=== PATIENT | male | born 1950 | race Caucasian/White ===

== ENCOUNTER 2019-08-22 14:38 | Emergency (ER) | payer MEDICARE, SELFPAY ==
--- NOTE | 2019-08-22 14:44 | ECG_ITS ---
Measurements Intervals [place] Rate: 83 P: 31 [place]: 136 QRS: -16 QRSD: 100 T: 32 QT: 358 QTc: 423 Interpretive Statements SINUS RHYTHM VOLTAGE CRITERIA FOR LVH BORDERLINE ECG Electronically Signed On 08-23-2019 8:43:09 CLINICAL CARE MANAGER by John Maciel D.O.
--- NOTE | 2019-08-22 14:51 | ED.CHESTPAIN ---
HPI - Chest Pain General Chief Complaint: Chest Pain Stated Complaint: CP Time Seen by Provider: 08/22/19 14:44 Source: patient Mode of arrival: ambulatory Limitations: no limitations and language barrier History of Present Illness HPI narrative: A 69 y/o male presents to the ED with c/o CP. Pt states that yesterday he was nauseous and took Pepto-Bismol for the nausea. He notes that he took 3-4 doses of Pepto-Bismol with no relief and then started to vomit. Pt adds that he vomited 4 times and started to have chest pain yesterday night. He reports that the CP has been constant since and is severe in nature. Pt does not note any aggravating or alleviating factors for the CP. He reports a bad taste in his mouth, but denies any current nausea or vomiting in the ED. A complete HPI is limited due to the patient being deaf. A stratus was used to translate. MD complaint: chest pain Onset (ago): day(s) (1) Timing of current episode: constant Severity: severe Relieving factors: nothing Exacerbating factors: nothing Associated symptoms: nausea (Resolved), vomiting (Resolved) and other (Bad taste in mouth) Related Data Allergies Allergy/AdvReac Type Severity Reaction Status Date / Time No Known Allergies Allergy Unverified 08/14/18 11:54 Review of Systems Review of Systems: All systems reviewed & are unremarkable except as noted in HPI and below ENT: Reports other (Bad taste in mouth) Cardiovascular: Cardiovascular: Reports chest pain Gastrointestinal: Gastrointestinal: Reports nausea (Resolved) and Reports vomiting (Resolved) [facility] Past Medical History Medical History (Updated 08/22/19 @ 18:05 by Pranav Stroud MD) Arthritis Deaf HTN (hypertension) Meningitis Psoriasis Surgical History Surgical History (Updated 08/22/19 @ 15:51 by Mercy Myles) History of hip surgery Right History of tonsillectomy Family History Family History Other Diabetes mellitus Family history of alcoholism Family history of arthritis Family history of lung disease Hypertension Social History Social History (Updated 08/22/19 @ 14:56 by Mercy Myles) Smoking packs per day: 1 Smoking cigarettes per day: 20.0 Years smoked: 30 Smoking pack-years: 30.00 Smoking status: Never smoker Smoking end date: 06/18/12 Alcohol intake: never Gender identity (if verbalized by the patient): Male Exam Const: General: healthy appearing, no acute distress and well developed Nutritional Appearance: well nourished Orientation/consciousness: patient oriented x3 (alert) and Other orientation findings (Alert) Limitations: no limitations HENMT: Head: normocephalic, atraumatic and other (Deaf) Ears: external ears normal General nose exam: No nasal discharge present and no epistaxis Face and sinus: face symmetric Mouth: Yes lip normal, Yes tongue normal and Yes moist mucous membranes Throat: other (No exudate, no erythema) Eyes: Conjunctivae: conjunctivae normal Sclera: sclerae normal EOM: EOMs intact bilaterally Neck: Neck: full ROM, no lymphadenopathy, supple and other (No neck pain) Thyroid: thyroid normal Chest: Chest palpation & inspection: no tenderness Resp: Effort & Inspection: normal respiratory effort Auscultation: clear to auscultation bilaterally, no rales, no rhonchi, no wheezes and other (breath sounds equal) Cardio: Rate: regular rate Rhythm: regular rhythm Heart sounds: no gallops and no murmurs GI: Inspection: non-distended GI Palp: No abdominal tenderness and Yes Soft to palpation Auscultation: other (bowel sounds present) : General: Yes no CVA tenderness Back/Spine/Pelvis: Back: no CVA tenderness Thoracic/Lumbar Spine: thoracic and lumbar spine normal to inspection Skin: General skin exam: normal color and no rashes or lesions noted Neuro: General: patient oriented x3 (alert), moves all extremities and no focal motor deficits Cranial nerves:
[2019-08-22 14:55] VITALS: BP 147/99; PULSE 82; PULSE 88; RESP 16; TEMP 37; O2SAT 100
[2019-08-22 14:55] LABS: Basophils Percent Auto 0.1 % (0.2-1.2); Eosinophils Percent Auto 0.1 % (0-4.4); Hematocrit 44.4 % (42.0-52.0); Immature Granulocyte Absolute 0.04 K/mm3 (0.00-0.031); Immature Granulocyte Percent A 0.5 % (0-0.5); Lymphocytes Absolute Auto 0.74 K/mm3 (0.9-3.2); Lymphocytes Percent Auto 8.9 % (18.3-44.2); Mean Corpuscular HGB Conc 33.8 g/dl (32-36); Mean Corpuscular Hemoglobin 29.6 pg (26-34); Mean Corpuscular Volume 87.6 fl (80-100); Mean Platelet Volume 8.6 fl (7.4-10.4); Monocytes Absolute Auto 0.5 K/mm3 (0.1-0.6); Monocytes Percent Auto 6.3 % (2.6-8.5); Neutrophils Percent Auto 84.1 % (45.5-73.1); Platelet Count Result 270 k/mm3 (150-375); Red Blood Count 5.07 M/mm3 (4.6-6.20); Red Cell Distribution Width 13.7 % (11.5-14.5); White Blood Count 8.3 K/mm3 (4.5-10.0)
[2019-08-22 15:10] LABS: Blood Urea Nitrogen 7 mg/dL (9-20); Calcium 9.2 mg/dL (8.4-10.2); Carbon Dioxide 26 mmol/L (22-30); Chloride 99 mmol/L (98-107); Estimated Glomerular Filt Rate > 60; Glucose 113 mg/dL (75-110); Sodium 134 mmol/L (137-145)
[2019-08-22 15:16] LABS: Prothrombin Time 13.2 Seconds (11.1-14.7)
[2019-08-22 15:17] LABS: Partial Thromboplastin Time 30.8 SECONDS (22.3-36.8)
[2019-08-22 15:18] LABS: Troponin I < 0.012 ng/mL (0.000-0.034)
[2019-08-22] MEDS: ASPIRIN 81 MG CHEWABLE TABLET 324 MG PO (15:34)
[2019-08-22 16:03] VITALS: BP 173/88; PULSE 78; RESP 18; O2SAT 100
[2019-08-22] MEDS: BELLADONNA ALK/PHENOB ELIX 10 ML, MAG HYDROX/ALUMINUM HYD/SIMETH 30 ML, LIDOCAINE HCL 2... PO (16:08)
--- NOTE | 2019-08-22 16:16 | PC.NURSE ---
SUPERVISOR PAINTING DEPARTMENT AT BEDSIDE TO SPEAK WITH PT ABOUT SETTING HIM UP WITH A HOME ALERT BUTTON.
[2019-08-22 16:37] VITALS: BP 173/88; PULSE 85; RESP 16; O2SAT 98
--- NOTE | 2019-08-22 17:17 | PC.NURSE ---
PT STATES HE IS FEELING MUCH BETTER.
[2019-08-22 17:19] VITALS: BP 145/89; PULSE 75; RESP 16; O2SAT 98
--- NOTE | 2019-08-22 17:35 | PC.NURSE ---
PT REPORT GIVEN TO SIMONE HALL AT THIS TIME, SHE HAS ASSUMED PT CARE.
[2019-08-22 18:01] LABS: Troponin I < 0.012 ng/mL (0.000-0.034)
[2019-08-22 18:28] VITALS: BP 152/80; PULSE 76; RESP 14; O2SAT 98
== END 2019-08-22 18:30 | disposition home or self-care (01) ==
PROVIDERS: Emergency Medicine; Emergency Provider Emergency Medicine; PCP Internal Medicine
DX: K21.9 Gastro-esophageal reflux disease without esophagitis (principal); M19.90 Unspecified osteoarthritis, unspecified site; I10 Essential (primary) hypertension; H91.90 Unspecified hearing loss, unspecified ear; Z87.891 Personal history of nicotine dependence; R94.31 Abnormal electrocardiogram [ECG] [EKG]
CPT/HCPCS: 36415; 80048; 84484; 85025; 85610; 85730; 93005; 99284; A9270

== ENCOUNTER 2020-08-03 14:30 | Emergency (ER) | payer MEDICARE, SELFPAY ==
--- NOTE | ~2020-08-03 | XR_ITS ---
EXAMINATION: XR elbow RT min 3V DATE: 08/03/2020 16:21 INDICATION: Right elbow pain post fall TECHNIQUE: Anteroposterior, two oblique and lateral views of the right elbow were obtained. COMPARISON: None. FINDINGS: Alignment is normal. No fracture or joint effusion. Mild osteoarthritis at the right elbow with ulnot rochlear predominant mild nonuniform joint space narrowing and tiny marginal osteophytes. Soft tissu es are unremarkable. IMPRESSION: 1. Mild osteoarthritis at the right elbow. No joint effusion or acute osseous abnormality. Reviewed, dictated and finalized at location A. ER TECH IMPRESSION: 1. Mild osteoarthritis at the right elbow. No joint effusion or acute osseous a bnormality.
--- NOTE | ~2020-08-03 | XR_ITS ---
EXAMINATION: XR wrist RT min 3V DATE: 08/03/2020 16:21 INDICATION: Right wrist pain post fall TECHNIQUE: Posteroanterior, oblique, and lateral views of the right wrist were obtained. COMPARISON: none FINDINGS: Transverse extra-articular fracture of the distal right radius with mild dorsal impaction resulting i n 10 degrees dorsal tilt of the distal articular surface. 1-2 mm distraction of an avulsion fracture across the base of the ulnar styloid process. Normal alignment in the visualized right hand with mild polyarticular osteoarthritis at the right wrist, right first metacarpophalangeal joint and multiple joints in the carpus. IMPRESSION: 1. Mild dorsal impaction of a transverse extra articular fracture of the distal metaphyseal region of the right radius. 2. Ulnar styloid avulsion fracture with minimal distraction. Reviewed, dictated and finalized at location A. RNATIONAL EXCHANGE COORDINATOR
--- NOTE | ~2020-08-03 | XR_ITS ---
EXAMINATION: XR chest 1V portable EXAM DATE: 08/03/2020 16:21 INDICATION: Weakness, history of hypertension. TECHNIQUE: Portable AP frontal chest x-ray was obtained. Comparison is made to prior examination from 06/11/2015. FINDINGS: Bibasilar somewhat linear airspace disease, appearance most consistent with atelectasis but can't exclude developing pneumonia. Mid and upper lung zones are clear. No pneumothorax or pleural e ffusion. Cardiomediastinal silhouette is normal. The bones are osteopenic. There are bony degenerati ve changes. IMPRESSION: Bibasilar opacities most consistent with atelectasis. Pneumonia not excludable. Reviewed, dictated and finalized at location A. ULATOR IMPRESSION: Bibasilar opacities most consistent with atelectasis. Pneumonia no t excludable.
--- NOTE | 2020-08-03 14:53 | ECG_ITS ---
Measurements Intervals [place] Rate: 73 P: 41 [place]: 164 QRS: -8 QRSD: 100 T: 25 QT: 395 QTc: 438 Interpretive Statements SINUS RHYTHM VOLTAGE CRITERIA FOR LVH BORDERLINE ECG Electronically Signed On 08-04-2020 9:26:01 NEWSROOM INTERN by John Maciel D.O.
[2020-08-03 15:00] LABS: Glucose Point of Care 140 (65-105)
--- NOTE | 2020-08-03 15:04 | PC.NURSE ---
Pt denies hitting head when falling. States through the carton stapler no other complaints but right arm pain
[2020-08-03 15:16] LABS: Basophils Percent Auto 0.3 % (0.2-1.2); Eosinophils Percent Auto 0.6 % (0-4.4); Hematocrit 44.1 % (42.0-52.0); Hemoglobin 14.9 g/dL (14.0-18.0); Immature Granulocyte Absolute 0.07 K/mm3 (0.00-0.031); Immature Granulocyte Percent A 1.1 % (0-0.5); Lymphocytes Absolute Auto 0.85 K/mm3 (0.9-3.2); Mean Corpuscular HGB Conc 33.8 g/dl (32-36); Mean Corpuscular Hemoglobin 30.6 pg (26-34); Mean Corpuscular Volume 90.6 fl (80-100); Mean Platelet Volume 8.4 fl (7.4-10.4); Monocytes Absolute Auto 0.4 K/mm3 (0.1-0.6); Monocytes Percent Auto 5.8 % (2.6-8.5); Neutrophils Absolute Auto 5.2 K/mm3 (1.3-6.7); Neutrophils Percent Auto 79.2 % (45.5-73.1); Platelet Count Result 281 k/mm3 (150-375); Red Blood Count 4.87 M/mm3 (4.6-6.20); Red Cell Distribution Width 13.5 % (11.5-14.5); White Blood Count 6.6 K/mm3 (4.5-10.0)
[2020-08-03 15:27] LABS: Alanine Aminotransferase 32 U/L (4-50); Alkaline Phosphatase 49 U/L (38-126); Anion Gap 6 mmol/L (8-16); Aspartate Amino Transferase 26 U/L (17-59); Bilirubin,Total 0.6 mg/dL (0.2-1.3); Blood Urea Nitrogen 9 mg/dL (9-20); Calcium 8.7 mg/dL (8.4-10.2); Carbon Dioxide 29 mmol/L (22-30); Chloride 101 mmol/L (98-107); Estimated Glomerular Filt Rate > 60; Glucose 146 mg/dL (75-110); Potassium 3.8 mmol/L (3.4-5.0); Sodium 136 mmol/L (137-145)
[2020-08-03 16:33] VITALS: BP 142/78; O2SAT 97
--- NOTE | 2020-08-03 16:51 | PC.NURSE ---
EKG done in room. patient placed on cardiac rn. needs right wrist splint. patient wants to eat.
--- NOTE | 2020-08-03 17:05 | ED.FALL ---
HPI - Fall General Chief Complaint: Weakness Stated Complaint: weakenss and dizziness Time Seen by Provider: 08/03/20 16:42 Source: patient Limitations: other (Patient is deaf, we wrote notes) History of Present Illness HPI Narrative: 70-year-old man Slipped on ice and fell this morning Injury to right arm and wrist Pain with attempted use, no numbness, no weakness He did not faint, he did not strike his head, and he reports no other injuries He does endorse some mild generalized fatigue or weakness Related Data Allergies Allergy/AdvReac Type Severity Reaction Status Date / Time No Known Allergies Allergy Unverified 08/14/18 11:54 Review of Systems Constitutional: Constitutional: Reports fatigue Cardiovascular: Cardiovascular: Denies chest pain Gastrointestinal: Gastrointestinal: Denies abdominal pain Musculoskeletal: Musculoskeletal: Denies back pain, Reports arthralgias and Reports joint swelling Neurologic: Denies syncope [facility], [facility] Past Medical History Medical History (Updated 08/04/20 @ 00:00 by Fransisco Siddiqui) Arthritis Deaf HTN (hypertension) Meningitis Psoriasis Surgical History Surgical History (Updated 08/22/19 @ 15:51 by Mercy Myles) History of hip surgery Right History of tonsillectomy Family History Family History Other Diabetes mellitus Family history of alcoholism Family history of arthritis Family history of lung disease Hypertension Social History Social History (Updated 08/22/19 @ 14:56 by Mercy Myles) Smoking packs per day: 1 Smoking cigarettes per day: 20.0 Years smoked: 30 Smoking pack-years: 30.00 Smoking status: Never smoker Smoking end date: 06/18/12 Alcohol intake: never Gender identity (if verbalized by the patient): Male Exam Const: General: no acute distress and alert Nutritional Appearance: well nourished Limitations: language barrier HENMT: Head: normal to inspection, no contusions, no hematomas and no lacerations Other: Patient is deaf Eyes: Conjunctivae: conjunctivae normal EOM: EOMs intact bilaterally Chest: Chest palpation & inspection: normal inspection of the chest Resp: Effort & Inspection: normal respiratory effort and not labored Auscultation: clear to auscultation bilaterally Cardio: Rate: regular rate Rhythm: regular rhythm Skin: Wounds: no wounds Neuro: General: moves all extremities Extrem: Other: Mild swelling and tenderness right distal forearm/wrist, intact distal neurovascular, able to move all his fingers Course Vital Signs Vital signs: Vital Signs Blood Pressure 142/78 H 08/03/20 16:33 Pulse Oximetry 97 08/03/20 16:33 Blood Pressure 142/78 H 08/03/20 16:33 Pulse Oximetry 97 08/03/20 16:33 MDM - Fall Lab Data Result diagrams: 08/03/20 15:08 08/03/20 15:08 Labs: Lab Results 08/03/20 08/03/20 08/03/20 Range/Units 14:58 15:08 15:08 WBC 6.6 (4.5-10.0) K/mm3 RBC 4.87 (4.6-6.20) M/mm3 Hgb 14.9 (14.0-18.0) g/dL Hct 44.1 (42.0-52.0) % MCV 90.6 (80-100) fl MCH 30.6 (26-34) pg MCHC 33.8 (32-36) g/dl RDW 13.5 (11.5-14.5) % Plt Count 281 (150-375) k/mm3 MPV 8.4 (7.4-10.4) fl Immature Gran % (Auto) 1.1 H (0-0.5) % Neut % (Auto) 79.2 H (45.5-73.1) % Lymph % (Auto) 13.0 L (18.3-44.2) % [place] % (Auto) 5.8 (2.6-8.5) % Eos % (Auto) 0.6 (0-4.4) % Baso % (Auto) 0.3 (0.2-1.2) % Lymph # (Auto) 0.85 L (0.9-3.2) K/mm3 [place] # (Auto) 0.4 (0.1-0.6) K/mm3 Eos # (Auto) 0.0 (0-0.3) K/mm3 Baso # (Auto) 0.0 (0.0-0.1) K/mm3 Abs Immat Gran (auto) 0.07 H (0.00-0.031) K/mm3 Absolute Neuts (auto) 5.2 (1.3-6.7) K/mm3 Absolute Nucleated RBC 0.0 (0.0-0.012) K/mm3 Nucleated RBC % 0.0 (0.0-0.2) % Sodium 136 L (137-145) mmol/L Potassium 3.8 (3.4-5.0) mmol/L Chloride 101 (98-1
--- NOTE | 2020-08-03 17:35 | PC.NURSE ---
resting on stretcher. on monitor. patient wants coffee and toast. advised we do not have any ready at this moment. ice water and keny crackers with peanut butter given. will get splint on right wrist.
[2020-08-03] MEDS: HYDROcodone/acetaminophen (*CRX) 5-325 MG TABLET 1 TAB PO (18:02)
--- NOTE | 2020-08-03 18:02 | PC.NURSE ---
pain medication given. clarified ordered with Dr. Stroud. patient needs right wrist volar splint prior to discharge. patient updated.
--- NOTE | 2020-08-03 18:15 | PC.NURSE ---
tire service technician at bedside. Volar splint to right wrist as ordered and clarified by provider. (+)PMS after splint applied. all directions and explanation of procedure were written out for patient. verbalized understanding.
== END 2020-08-03 18:37 | disposition home or self-care (01) ==
PROVIDERS: Emergency Medicine; Emergency Provider Emergency Medicine; PCP Family Medicine
DX: S52.551A Other extraarticular fracture of lower end of right radius, initial encounter for closed fracture (principal); S52.611A Displaced fracture of right ulna styloid process, initial encounter for closed fracture; I10 Essential (primary) hypertension; L40.9 Psoriasis, unspecified; H91.90 Unspecified hearing loss, unspecified ear; Z87.891 Personal history of nicotine dependence; M19.021 Primary osteoarthritis, right elbow; R91.8 Other nonspecific abnormal finding of lung field; W00.0XXA Fall on same level due to ice and snow, initial encounter
CPT/HCPCS: 29125; 36415; 71045; 73080; 73110; 80053; 82948; 85025; 93005; 99284; A9270

== ENCOUNTER 2020-11-10 17:49 | Emergency (ER) | payer MEDICARE, MEDICAID, SELFPAY ==
--- NOTE | ~2020-11-10 | XR_ITS ---
XR finger 3rd LT min 2V 11/10/2020 19:09 INDICATION: Left third finger pain PROCEDURE: 3 views left third finger COMPARISON: No prior studies for comparison. FINDINGS: Fracture, dislocation or subluxation is not identified. Osteopenia. The soft tissues appear within normal limits. No foreign bodies are identified. There is a healed second metacarpal fractur e. IMPRESSION: 1: NO ACUTE BONE OR JOINT ABNORMALITY IDENTIFIED. Reviewed, dictated and finalized at location A.
[2020-11-10 18:00] VITALS: BP 149/88; PULSE 78; RESP 18; TEMP 36.4; O2SAT 98
--- NOTE | 2020-11-10 18:54 | ED.UPPEXIN ---
HPI - Extremity Injury (Upper) General Chief Complaint: Extremity Injury, Upper Stated Complaint: finger pain Time Seen by Provider: 11/10/20 18:22 Source: patient Mode of arrival: ambulatory Limitations: language barrier (Used video fire adjuster for sign language) History of Present Illness HPI narrative: This is a 70-year-old male that presents the emergency department for possible foreign body in the left third finger. He was moving boxes yesterday and feels like he may have gotten a splinter. Reports pain to the area. Denies fever, erythema, or edema. Related Data Allergies Allergy/AdvReac Type Severity Reaction Status Date / Time No Known Allergies Allergy Verified 11/10/20 18:19 Review of Systems Review of Systems: Narrative: CONSTITUTIONAL: Denies fever SKIN: Denies rash All systems reviewed & are unremarkable except as noted in HPI and below PMFSH Past Medical History Medical History Arthritis Deaf HTN (hypertension) Meningitis Psoriasis Surgical History Surgical History History of hip surgery Right History of tonsillectomy Family History Family History Other Diabetes mellitus Family history of alcoholism Family history of arthritis Family history of lung disease Hypertension Social History Social History Smoking packs per day: 1 Smoking cigarettes per day: 20.0 Years smoked: 30 Smoking pack-years: 30.00 Smoking status: Never smoker Smoking end date: 06/18/12 Alcohol intake: never Gender identity (if verbalized by the patient): Male Exam Narrative: Exam Narrative: GENERAL: Well-appearing, well-nourished, and in no acute distress. HEAD: Normocephalic, atraumatic. EYES: EOMI. EXTREMITIES: Normal range of motion. No edema, erythema or obvious foreign body on exam. SKIN: Warm, dry, no rash. NEURO: No focal deficits. Alert and oriented x3. PSYCH: Normal mood and affect Course Vital Signs Vital signs: Vital Signs Temperature 97.5 F L 11/10/20 18:00 Pulse Rate 78 11/10/20 18:00 Respiratory Rate 18 11/10/20 18:00 Blood Pressure 149/88 H 11/10/20 18:00 Pulse Oximetry 98 11/10/20 18:00 Temperature 97.5 F L 11/10/20 18:00 Pulse Rate 78 11/10/20 18:00 Respiratory Rate 18 11/10/20 18:00 Blood Pressure 149/88 H 11/10/20 18:00 Pulse Oximetry 98 11/10/20 18:00 MDM - Extremity Injury (Upper) MDM Narrative Medical decision making narrative: Patient presents the emergency department for left third finger pain yesterday. Reports he was worried he may have a splinter. He is afebrile and nontoxic-appearing. No erythema, edema or warmth of the finger. No obvious foreign bodies on exam. Left third finger x-rays without acute osseous abnormalities. Patient instructed to do warm, soapy soaks to the finger multiple times daily. There is no abscess noted on exam. He is stable and felt appropriate for further outpatient evaluation. He was given warnings to return to the ER Imaging Data Radiologist's impression: ITS Impressions Finger X-Ray 11/10/20 19:11 IMPRESSION: 1: NO ACUTE BONE OR JOINT ABNORMALITY IDENTIFIED. Critical Care Time Critical Care Time Critical Care Time: No Discharge Plan Discharge Clinical Impression: Finger pain Qualifiers: Laterality: left Qualified Code(s): M79.645 - Pain in left finger(s) Patient Disposition: Home, Self-Care Condition: Stable Instructions: [place] (ED) Additional Instructions: Return to the emergency department if you experience fever, redness and swelling of your finger, abnormal drainage from the finger, or any other symptoms that are concerning to you Warm, soapy soaks for 15 minutes 3 times daily Follow up with your primary care doctor Selena
[2020-11-10 20:10] VITALS: BP 142/86; PULSE 80; RESP 20; TEMP 36.4; O2SAT 97
== END 2020-11-10 20:11 | disposition home or self-care (01) ==
PROVIDERS: Emergency Provider Emergency Medicine; PCP Family Medicine
DX: M79.645 Pain in left finger(s) (principal); M19.90 Unspecified osteoarthritis, unspecified site; I10 Essential (primary) hypertension; H91.90 Unspecified hearing loss, unspecified ear
CPT/HCPCS: 73140; 99283

== ENCOUNTER 2020-12-15 09:11 | Emergency (ER) | payer MEDICARE, MEDICAID, SELFPAY ==
[2020-12-15] VITALS (9 sets, daily range): BP systolic 161–194; BP diastolic 87–102; PULSE 63–89; RESP 14–33; TEMP 36.3; O2SAT 95–99
--- NOTE | ~2020-12-15 | XR_ITS ---
EXAMINATION: XR chest 1V portable INDICATION: Dizziness TECHNIQUE: Portable AP chest at 1231 hours COMPARISON: 08/03/2020 FINDINGS: There are patchy opacities of the lung bases. No pleural effusion or pneumothorax is identi fied. The cardiomediastinal silhouette is stable. IMPRESSION: 1. Patchy bibasilar airspace opacities, likely atelectasis. Reviewed, dictated and finalized at location B.
--- NOTE | ~2020-12-15 | CT_ITS ---
EXAMINATION: CT brain wo con DATE: 12/15/2020 12:47 INDICATION: Dizziness. Headache. TECHNIQUE: Computed tomography (CT) of the head was performed without intravenous contrast. The mA wa s adjusted according to patient size. Iterative reconstruction technique was employed. The dose-lengt h product was 605.33 mGy-cm. COMPARISON: None FINDINGS: There is no intracranial hemorrhage, acute infarction, or abnormal intracranial mass lesion . There is an old lacunar infarct in the left lentiform nucleus. There are scattered areas of low att enuation in the cerebral white matter. There is no intracranial hemorrhage, acute infarction, or abno rmal intracranial mass lesion. The ventricles are normal in size. IMPRESSION: 1. 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 2. Mild nonspecific cerebral white matter disease, which likely represents chronic small vessel ische marvin disease. Reviewed, dictated and finalized at location A. IMPRESSION: 1. 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 2. Mild nonspecific cerebral white matter disease, which likely represents manager news colton small vessel ischemic disease.
--- NOTE | 2020-12-15 09:41 | ECG_ITS ---
Measurements Intervals [place] Rate: 77 P: 27 [place]: 156 QRS: -26 QRSD: 105 T: 18 QT: 371 QTc: 422 Interpretive Statements SINUS RHYTHM POSSIBLE LEFT ATRIAL ENLARGEMENT INCOMPLETE RIGHT BUNDLE BRANCH BLOCK LEFT VENTRICULAR HYPERTROPHY BORDERLINE ECG Electronically Signed On 12-15-2020 10:08:06 CDT by John Maciel D.O.
[2020-12-15 10:19] LABS: Basophils Percent Auto 0.5 % (0.2-1.2); Eosinophils Percent Auto 0.6 % (0-4.4); Hematocrit 46.4 % (42.0-52.0); Hemoglobin 15.5 g/dL (14.0-18.0); Immature Granulocyte Absolute 0.05 K/mm3 (0.00-0.031); Immature Granulocyte Percent A 0.8 % (0-0.5); Lymphocytes Absolute Auto 0.95 K/mm3 (0.9-3.2); Lymphocytes Percent Auto 15.3 % (18.3-44.2); Mean Corpuscular HGB Conc 33.4 g/dl (32-36); Mean Corpuscular Hemoglobin 29.7 pg (26-34); Mean Corpuscular Volume 88.9 fl (80-100); Mean Platelet Volume 8.6 fl (7.4-10.4); Monocytes Absolute Auto 0.6 K/mm3 (0.1-0.6); Monocytes Percent Auto 9.7 % (2.6-8.5); Neutrophils Absolute Auto 4.5 K/mm3 (1.3-6.7); Neutrophils Percent Auto 73.1 % (45.5-73.1); Platelet Count Result 304 k/mm3 (150-375); Red Blood Count 5.22 M/mm3 (4.6-6.20); Red Cell Distribution Width 13.2 % (11.5-14.5); White Blood Count 6.2 K/mm3 (4.5-10.0)
[2020-12-15 10:25] LABS: Anion Gap 10 mmol/L (8-16); Blood Urea Nitrogen 5 mg/dL (9-20); Calcium 9.3 mg/dL (8.4-10.2); Carbon Dioxide 25 mmol/L (22-30); Chloride 100 mmol/L (98-107); Estimated CRCL calculation 97 ml/min; Estimated Glomerular Filt Rate > 60; Glucose 118 mg/dL (75-110); Potassium 3.8 mmol/L (3.4-5.0); Sodium 135 mmol/L (137-145)
--- NOTE | 2020-12-15 12:13 | ED.HA ---
HPI - Headache General Chief Complaint: Headache Stated Complaint: dizziness, feel funny in my head , needs ASL Time Seen by Provider: 12/15/20 12:03 Source: RN notes reviewed History of Present Illness HPI Narrative: Patient presents emergency department from home for headache and dizziness. Patient states symptoms began 1 day ago. He states he has been having intermittent frontal headache with episodes of dizziness he states currently his headache is improved but is still present states he took no medication for his headache he also notes intermittent episodes of feeling like the room is spinning. He denies any fevers or chills, chest pain, shortness of breath, numbness or tingling in the extremities or any other symptoms. Patient is deaf and communication was performed by writing on paper pacing [id number] as the patient does not want to use rn practitioner Related Data Allergies Allergy/AdvReac Type Severity Reaction Status Date / Time No Known Allergies Allergy Verified 12/15/20 09:52 Review of Systems Review of Systems: Narrative: Gen.: Denies fevers or chills Eyes: Denies eye pain or visual change ENT: Denies congestion Respiratory: Denies shortness of breath or cough CV: Denies chest pain or palpitations GI: Denies abdominal pain nausea, emesis or diarrhea Musculoskeletal: Denies back pain or muscle pain Neuro: See HPI Skin: Denies rash Except as documented, all other systems reviewed and negative [facility] Past Medical History Medical History Arthritis Deaf HTN (hypertension) Meningitis Psoriasis Surgical History Surgical History History of hip surgery Right History of tonsillectomy Family History Family History Other Diabetes mellitus Family history of alcoholism Family history of arthritis Family history of lung disease Hypertension Social History Social History Smoking packs per day: 1 Smoking cigarettes per day: 20.0 Years smoked: 30 Smoking pack-years: 30.00 Smoking status: Never smoker Smoking end date: 06/18/12 Alcohol intake: never Gender identity (if verbalized by the patient): Male Exam Narrative: Exam Narrative: APPEARANCE: No acute distress, nontoxic, resting in bed HEENT: Normocephalic, atraumatic, OMM, EYES: PERRL, EOMI NECK: Supple, nontender, full range of motion without pain, no meningismus RESPIRATORY: No respiratory distress, clear to auscultation bilaterally with no rhonchi wheezing or rales CARDIOVASCULAR: RRR s murmur ABDOMINAL: Soft, nontender, nondistended MUSCULOSKELETAL: Moves all extremities. No clubbing, cyanosis or edema. NEURO: A and O ?3, following commands, speech normal, no facial droop,muscle strength 5 out of 5 bilateral upper and lower extremities SKIN:: Warm, dry. Normal Color PSYCHIATRIC: Normal affect/mood Course Course Emergency Course: Patient states he is feeling much better ready for discharge Discussed with patient results of workup and diagnosis. Discussed need for follow-up with primary care, proper use of medication, and reasons to return to the emergency department. Patient understands and agrees to current treatment plan Vital Signs Vital signs: Vital Signs Temperature 97.3 F L 12/15/20 09:35 Pulse Rate 89 12/15/20 09:35 Respiratory Rate 18 12/15/20 09:35 Blood Pressure 171/99 H 12/15/20 09:35 Pulse Oximetry 95 12/15/20 09:35 Temperature 97.3 F L 12/15/20 09:35 Pulse Rate 63 12/15/20 14:42 Respiratory Rate 18 12/15/20 14:42 Blood Pressure 161/102 H 12/15/20 14:42 Pulse Oximetry 95 12/15/20 09:35 MDM - Headache MDM Narrative Medical decision making narrative: Patient's headache was not sudden or maximal in onset. There are no focal deficits on exam. Subarachnoid hem
[2020-12-15 12:26] LABS: Add Urine Microscopic? NO; Appearance Urine Clear (Clear); Bilirubin Urine Negative (Negative); Blood Urine Negative (Negative); Color Urine Straw (Yellow); Glucose Urine UA Negative (Negative); Ketones Urine Negative (Negative); Leukocyte Esterase Ur Negative LEU/UL (Negative); Nitrate Urine Negative (Negative); Protein Urine Negative (Negative); Urobilinogen Urine Negative mg/dL (<2.0)
[2020-12-15] MEDS: SODIUM CHLORIDE 0.9% IV 1,000 ML 999 ML IV CONT (12:26)
[2020-12-15] MEDS: MECLIZINE HCL 12.5 MG TABLET PO (12:28)
[2020-12-15 12:29] LABS: Specific Grav Ur 1.003 (1.001-1.035)
== END 2020-12-15 16:00 | disposition home or self-care (01) ==
PROVIDERS: Emergency Medicine; Emergency Provider Emergency Medicine; PCP Family Medicine
DX: R51.9 Headache, unspecified (principal); R42 Dizziness and giddiness; I10 Essential (primary) hypertension; F17.210 Nicotine dependence, cigarettes, uncomplicated
CPT/HCPCS: 36415; 70450; 71045; 80048; 81003; 85025; 93005; 96361; 96374; 99284; A9270; J0131; J7030

== ENCOUNTER 2021-12-18 16:11 | Emergency (ER) | payer MEDICARE, SELFPAY ==
--- NOTE | ~2021-12-18 | XR_ITS ---
EXAM: XR lumbar spine 2-3V DATE: 12/18/2021 18:16 HISTORY: low back pain x 5 days . COMPARISON: None available. FINDINGS: 5 nonrib-bearing lumbar-type vertebral bodies. Pedicles intact. Mild anterior wedge deform ity with lucencies in the superior endplate at L3. Minimal anterior wedge deformity at multiple level s at the thoracolumbar junction, may be physiologic. Mild anterior wedge deformity of L4. Multilevel degenerative disc disease, severe at L4-5 and L5-S1. Multilevel minimal listheses throughout the lumb ar spine. Aortic vascular calcification without evident aneurysm. Right hip arthroplasty, partially v isualized. IMPRESSION: Acute appearing mild L3 wedge compression fracture. Acute versus chronic mild wedge compr ession deformity at L4. Reviewed, dictated and finalized at location K. IMPRESSION: Acute appearing mild L3 wedge compression fracture. Acute versus ch ronic mild wedge compression deformity at L4.
[2021-12-18 16:23] VITALS: BP 154/84; PULSE 94; RESP 16; TEMP 36.6; O2SAT 100
--- NOTE | 2021-12-18 17:30 | ED.BACK ---
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 No recent injury or trauma. Reports the pain is in his low back and is exacerbated by certain movements. It is relieved with rest. He has been taking [id number] medications with little relief. Denies fever or weakness. <JOSE Somers Last Filed: 12/18/21 19:21> Related Data Home Medications: Home Medications Medication Instructions Recorded Confirmed hydroxychloroquine 200 mg tablet 200 mg PO DAILY 01/31/21 02/02/21 lisinopril 5 mg tablet 5 mg PO DAILY 01/31/21 02/02/21 <JOSE Somers Last Filed: 12/18/21 19:21> Allergies/Adverse Reactions: Allergies Allergy/AdvReac Type Severity Reaction Status Date / Time No Known Allergies Allergy Verified 12/18/21 17:25 <JOSE Somers Last Filed: 12/18/21 19:21> Review of Systems Review of Systems: CONSTITUTIONAL: Denies fever GASTROINTESTINAL: Denies vomiting SKIN: Denies rash MUSCULOSKELETAL: Reports back pain, joint pain, and myalgia. NEUROLOGIC: Denies numbness, or weakness. <JOSE Somers Last Filed: 12/18/21 19:21> All systems reviewed & are unremarkable except as noted in HPI and below <Simi Stewart PA-C - Last Filed: 12/18/21 19:21> PMFSH Past Medical History Medical History: Medical History Arthritis Deaf History of closed Colles' fracture HTN (hypertension) Meningitis Psoriasis <Simi Stewart PA-C - Last Filed: 12/18/21 19:21> Surgical History Surgical History: Surgical History History of hip surgery Right History of tonsillectomy <Simi Stewart PA-C - Last Filed: 12/18/21 19:21> Family History Family History: Family History Other Diabetes mellitus Family history of alcoholism Family history of arthritis Family history of lung disease Hypertension <Simi Stewart PA-C - Last Filed: 12/18/21 19:21> Social History Social History: Social History (Updated 12/18/21 @ 17:33 by Simi tSewart PA-C) Smoking packs per day: 1 Smoking cigarettes per day: 20.0 Years smoked: 30 Smoking pack-years: 30.00 Smoking status: Former smoker Smoking end date: 06/18/12 Alcohol intake: never Gender identity (if verbalized by the patient): Male <Simi Stewart PA-C - Last Filed: 12/18/21 19:21> Exam Narrative: GENERAL: Well-appearing, well-nourished, and in no acute distress. HEAD: Normocephalic, atraumatic. EYES: EOMI. CHEST: Clear to auscultation. No respiratory distress. No wheezes rales or rhonchi HEART: Regular rate and rhythm. No murmur heard. Normal peripheral pulses. BACK: No midline spinal tenderness EXTREMITIES: Normal range of motion. No edema. Strength equal in bilateral lower extremities (5/5) SKIN: Warm, dry, no rash. NEURO: No focal deficits. Alert and oriented x3. PSYCH: Normal mood and affect <Simi Stewart PA-C - Last Filed: 12/18/21 19:21> Course DIVE SUPERINTENDENT/PA Physician Supervision I did not see this patient nor was the care plan discussed with me, imaging reviewed I was available for eval
== END 2021-12-18 19:37 | disposition home or self-care (01) ==
PROVIDERS: Emergency Provider Emergency Medicine; PCP Family Medicine
DX: S32.030A Wedge compression fracture of third lumbar vertebra, initial encounter for closed fracture (principal); M19.90 Unspecified osteoarthritis, unspecified site; I10 Essential (primary) hypertension; Z87.891 Personal history of nicotine dependence; X58.XXXA Exposure to other specified factors, initial encounter
CPT/HCPCS: 72100; 99283

== ENCOUNTER 2022-01-26 10:46 | Emergency (ER) | payer MEDICARE, SELFPAY ==
[2022-01-26 11:00] VITALS: BP 132/75; PULSE 101; RESP 18; TEMP 36.7; O2SAT 98
--- NOTE | 2022-01-26 11:12 | ED.EAR ---
HPI - Ear Problem General Chief complaint: Ear Stated complaint: Ear Pain Time Seen by Provider: 01/26/22 11:05 Source: patient Mode of arrival: ambulatory Limitations: no limitations History of Present Illness HPI Narrative: Mr. Go is a 71-year-old male patient presenting to the clinic today with complaints of bilateral ear pain the left greater than right x2 to 3 days.He is deaf and thinks that he may have cerumen impaction. He has been irrigating his ears out with warm water. He denies any fever or chills. Related Data Home Medications Medication Instructions Recorded Confirmed hydroxychloroquine 200 mg tablet 200 mg PO DAILY 01/31/21 01/26/22 lisinopril 5 mg tablet 5 mg PO DAILY 01/31/21 01/26/22 Allergies Allergy/AdvReac Type Severity Reaction Status Date / Time No Known Allergies Allergy Verified 01/26/22 11:01 Review of Systems Review of Systems: Pertinent positives per HPI. Patient denies any fever, chills, rash, headache, visual changes, dizziness, cough, runny nose, sore throat, shortness of breath, chest pain, palpitations, nausea, vomiting, diarrhea, constipation, abdominal pain, or any urinary issues. [facility] Past Medical History Medical History Arthritis Deaf History of closed Colles' fracture HTN (hypertension) Meningitis Psoriasis Surgical History Surgical History History of hip surgery Right History of tonsillectomy Family History Family History Other Diabetes mellitus Family history of alcoholism Family history of arthritis Family history of lung disease Hypertension Social History Social History Smoking packs per day: 1 Smoking cigarettes per day: 20.0 Years smoked: 30 Smoking pack-years: 30.00 Smoking status: Former smoker Smoking end date: 06/18/12 Alcohol intake: never Gender identity (if verbalized by the patient): Male Comments At the time of my signature, I reviewed and agree with the nursing past medical, surgical, social, and family history. There is no relevant family history pertinent to the patient complaint. Exam Narrative: General: Well-developed, well nourished, in no apparent distress Head: Normocephalic, atraumatic Eyes: Pupils equally round and reactive to light bilaterally, EOM intact, sclera and conjunctive clear, no discharge, lids normal Ears: TMs intact, bulging, and clear, ear canals clear, no drainage, grossly hearing normal. Nose: Nares patent, no discharge, no inflammation, no sinus tenderness. Mouth: Oropharynx without lesions or masses, good dentition, MMM. Neck: Supple, trachea midline, no enlargement of anterior or posterior cervical nodes, no thyroid masses or goiter palpable. Cardio: Regular rate and rhythm, s1 and s2 normal, no murmur appreciated. Resp: Clear to auscultation bilaterally anteriorly and posteriorly, no rhonchi, rales, wheezing or rubs Course Course Emergency Course: Portions of this record may have been created with voice recognition software. Level of Care: Express Care Visit Vital Signs Vital signs: Vital Signs Temperature 36.7 C 01/26/22 11:00 Pulse Rate 101 H 01/26/22 11:00 Respiratory Rate 18 01/26/22 11:00 Blood Pressure 132/75 01/26/22 11:00 Pulse Oximetry 98 01/26/22 11:00 Oxygen Delivery Room Air 01/26/22 11:00 Temperature 36.7 C 01/26/22 11:00 Pulse Rate 101 H 01/26/22 11:00 Respiratory Rate 18 01/26/22 11:00 Blood Pressure 132/75 01/26/22 11:00 Pulse Oximetry 98 01/26/22 11:00 Oxygen Delivery Room Air 01/26/22 11:00 Vital signs reviewed Medical Decision Making MDM Narrative Medical decision making narrative: At the time of visit patient is resting comfortably on the exam table.
== END 2022-01-26 11:20 | disposition home or self-care (01) ==
PROVIDERS: Emergency Provider Nurse Practitioner Family; PCP Family Medicine
DX: H69.93 Unspecified Eustachian tube disorder, bilateral (principal); Z87.891 Personal history of nicotine dependence; M19.90 Unspecified osteoarthritis, unspecified site; I10 Essential (primary) hypertension; L40.9 Psoriasis, unspecified; H91.90 Unspecified hearing loss, unspecified ear
CPT/HCPCS: 99213; G0463

== ENCOUNTER 2022-02-17 13:26 | Emergency (ER) | payer MEDICARE, MEDICAID, SELFPAY ==
[2022-02-17 13:32] VITALS: BP 150/100; PULSE 120; RESP 16; TEMP 36.6; O2SAT 98
[2022-02-17] MEDS: BELLADONNA ALK/PHENOB ELIX 10 ML, MAG HYDROX/ALUMINUM HYD/SIMETH 30 ML, LIDOCAINE HCL 2... PO (15:44)
--- NOTE | 2022-02-17 15:46 | ED.GENADULT ---
HPI - General Adult General Chief complaint: Dental/Oral Stated complaint: sores in mouth Time Seen by Provider: 02/17/22 14:39 History of Present Illness HPI narrative: 72-year-old male presenting to the emergency department for evaluation of worsening mouth sores. Patient states that he started methotrexate a few days ago and started developing the mouth sores after that point. Patient states he did stop taking the methotrexate. Patient had been prescribed methotrexate for his arthritis. This was the first time the patient was on methotrexate. Patient states due to the mouth sores he has had decreased p.o. intake. Patient also complained of a rash to his groin. 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 Related Data Home Medications Medication Instructions Recorded Confirmed hydroxychloroquine 200 mg tablet 200 mg PO DAILY 01/31/21 01/26/22 lisinopril 5 mg tablet 40 mg PO BID 01/31/21 01/26/22 folic acid 1 mg tablet 1 mg PO DAILY 02/17/22 hydrocodone 5 mg-acetaminophen 325 tablet 02/17/22 mg tablet methotrexate sodium 2.5 mg tablet mg 02/17/22 Allergies Allergy/AdvReac Type Severity Reaction Status Date / Time No Known Allergies Allergy Verified 02/17/22 15:34 Review of Systems Review of Systems: CONSTITUTIONAL: Denies fever, chills, or sweats. EYES: Denies visual changes, redness, or discharge. ENT: Denies rhinorrhea, congestion, sore throat, or otalgia. CARDIOVASCULAR: Denies chest pain, palpitations, or edema. RESPIRATORY: Denies cough or dyspnea. GASTROINTESTINAL: Denies abdominal pain, nausea, vomiting, or diarrhea. GENITOURINARY: Denies dysuria or hematuria. SKIN: See HPI MUSCULOSKELETAL: Denies back pain, joint pain, or myalgia. NEUROLOGIC: Denies headache, numbness, or weakness. PSYCHIATRIC: Denies anxiety or depression. [facility] Past Medical History Medical History Arthritis Deaf History of closed Colles' fracture HTN (hypertension) Meningitis Psoriasis Surgical History Surgical History History of hip surgery Right History of tonsillectomy Family History Family History Other Diabetes mellitus Family history of alcoholism Family history of arthritis Family history of lung disease Hypertension Social History Social History Smoking packs per day: 1 Smoking cigarettes per day: 20.0 Years smoked: 30 Smoking pack-years: 30.00 Smoking status: Former smoker Smoking end date: 06/18/12 Alcohol intake: never Gender identity (if verbalized by the patient): Male Exam Narrative: APPEARANCE: Well appearing, no pain, no distress, well-nourished. HEAD: normocephalic, atraumatic. EYES: PERRLA/EOMI, conjunctivae clear. NOSE: Normal no drainage EARS:TMS clear with good light reflex. THROAT: Lesions on the soft palate NECK: Supple. No adenopathy, no masses. RESPIRATORY: Airway patent, respirations nonlabored. Clear to auscultation bilaterally, no rales, rhonchi, wheezing. CARDIOVASCULAR: Regular rate and rhythm without murmurs rubs or gallops. ABDOMINAL: Soft, nontender, nondistended, normal bowel sounds MUSCULOSKELETAL: Moves all extremities. Strength/ROM intact, No edema, No calf tenderness. NEURO: Alert. Cranial nerves II through XII intact. SKIN: Alise rash on testicles and legs Course Course Emergency Course: Patient was provided a Magic mouthwash in the emergency department for his soft palate irritation. Patient was informed to stop taking the methotrexate. Patient was also provided nystatin ointment for his Alise groin rash. Vital Signs Vital signs: Vital Signs Temperature 98 F 02/17/22 13:32 Pulse Rate 120 H 02/17/22 13:32 Respiratory Rate 16 02/17/22 13:32 Blood Pressure 150/100 H 02/17/22 13:32 Pulse Ox
[2022-02-17 15:56] VITALS: BP 150/83; PULSE 84; RESP 16; O2SAT 98
--- NOTE | 2022-02-17 16:22 | PC.NURSE ---
Nurse in to discharge pt. Pt is refusing to be discharged. Requesting to be admitted. States he can't eat due to mouth pain. ERP called to room and explained via furniture dipper that medication is being prescribed for his pain and to eat soft foods. When nurse and doctor give pt examples of food to try he says he doesn't like any of them. At one point pt pushes the stratera translater across the room. Pt then request something be given for his rash to his groin, this is the first time any mention of a rash to his groin has been mentioned. Doctor examined rash and explained to pt that he could not admit him and that he will have prescriptions at his pharmacy for his complaints. Pt begins telling the boarding house manager that she doesn't know how to interpret and throwing his arms. Pt told again by erp that he will be discharged. After speaking with pt for approx 20 min pt finally states OK I will just leave .
== END 2022-02-17 16:47 | disposition home or self-care (01) ==
LOC: ANHED 16:09
PROVIDERS: Emergency Provider Emergency Medicine; PCP Family Medicine
DX: K13.79 Other lesions of oral mucosa (principal); B37.2 Candidiasis of skin and nail; T45.1X5A Adverse effect of antineoplastic and immunosuppressive drugs, initial encounter; M19.90 Unspecified osteoarthritis, unspecified site; I10 Essential (primary) hypertension; Z87.891 Personal history of nicotine dependence
CPT/HCPCS: 99283; A9270

== ENCOUNTER 2023-09-25 12:18 | Emergency (ER) | payer MEDICARE, SELFPAY ==
--- NOTE | ~2023-09-25 | XR_ITS ---
EXAMINATION: XR knee LT 3V DATE: 09/25/2023 12:54 INDICATION: Chronic left knee pain TECHNIQUE: Anteroposterior, oblique and crosstable lateral views of the left knee were obtained COMPARISON: None. FINDINGS: No fracture. There is tricompartmental osteoarthritis at the left knee, advanced in the lateral do rtment with severe joint space narrowing and remodeling of the articular surface of the lateral tibia l plateau. This results in mild genu valgus. Small left knee joint effusion without layering lipohema rthrosis. IMPRESSION: 1. 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 2. Likely secondary reactive small left knee joint effusion. Reviewed, dictated and finalized at location B. IMPRESSION: 1. Tricompartmental osteoarthritis at the left knee, advanced in the lateral co mpartment. 2. Likely secondary reactive small left knee joint effusion.
[2023-09-25 12:28] VITALS: BP 138/86; PULSE 91; RESP 16; O2SAT 97
[2023-09-25 12:32] VITALS: BP 138/83; PULSE 82; RESP 16; TEMP 37; O2SAT 100
[2023-09-25 13:17] VITALS: BP 155/94; PULSE 90; RESP 16; TEMP 36.5; O2SAT 97
[2023-09-25 13:47] VITALS: BP 136/58; PULSE 72; RESP 16; TEMP 36.8; O2SAT 98
[2023-09-25] MEDS: ACETAMINOPHEN 500 MG TABLET 1000 MG PO (14:02)
--- NOTE | 2023-09-25 14:20 | ED.LOWEXIN ---
HPI - Extremity Injury (Lower) General Chief Complaint: Extremity Injury, Lower Stated Complaint: L knee pain Time Seen by Provider: 09/25/23 12:21 History of Present Illness HPI Narrative: Patient states he has chronic left knee pain, has been having issues with it for years but has not followed up with any doctor in about 20 years wrist knee but is uncomfortable to walk on. He was recently evicted from his living situation and casework manager is working on getting him into a assisted. No new changes to his symptoms today. Related Data Home Medications Medication Instructions Recorded Confirmed hydroxychloroquine 200 mg tablet 200 mg PO DAILY 01/31/21 01/26/22 lisinopril 5 mg tablet 40 mg PO BID 01/31/21 01/26/22 folic acid 1 mg tablet 1 mg PO DAILY 02/17/22 hydrocodone 5 mg-acetaminophen 325 tablet 02/17/22 mg tablet methotrexate sodium 2.5 mg tablet mg 02/17/22 Allergies Allergy/AdvReac Type Severity Reaction Status Date / Time No Known Allergies Allergy Verified 02/17/22 15:34 Review of Systems Review of Systems: CONST: No fever. HEENT: No sore throat C/V: No chest pain RESP: No cough GI: no abd pain : No dysuria. M/S: L knee pain. SKIN: No rash. NEURO: [No headache or focal numbness or weakness] PSYCH: [No depression] [facility] Past Medical History Medical History Arthritis Deaf History of closed Colles' fracture HTN (hypertension) Meningitis Psoriasis Surgical History Surgical History History of hip surgery Right History of tonsillectomy Family History Family History Other Diabetes mellitus Family history of alcoholism Family history of arthritis Family history of lung disease Hypertension Social History Social History Smoking packs per day: 1 Smoking cigarettes per day: 20.0 Years smoked: 30 Smoking pack-years: 30.00 Smoking status: Former smoker Smoking end date: 06/18/12 Alcohol intake: never Gender identity (if verbalized by the patient): Male Exam Narrative: EXAMINATION OF ORGAN SYSTEMS/BODY AREAS: Constitutional: Vital signs per nursing GENERAL:[No acute distress, non-toxic appearing.] HEAD: Normal with no signs of head trauma. EYES: EOMI, conjunctiva normal ENT: Hearing grossly intact LUNGS: Nonlabored breathing. HEART: [Regular rate and rhythm]; normal perfusion to lower leg ABD: [Soft], [nontender to palpation] EXT: Normal range of motion; L knee effusion SKIN: [No rashes or lesions.] NEURO: [Alert and oriented x 3. No gross focal sensory or strength deficits.] PSYCH: Normal affect Course Vital Signs Vital signs: Vital Signs Pulse Rate 91 09/25/23 12:28 Respiratory Rate 16 09/25/23 12:28 Blood Pressure 138/86 09/25/23 12:28 Pulse Oximetry 97 09/25/23 12:28 Temperature 98.2 F 09/25/23 13:47 Pulse Rate 72 09/25/23 13:47 Respiratory Rate 16 09/25/23 13:47 Blood Pressure 136/58 L 09/25/23 13:47 Pulse Oximetry 98 09/25/23 13:47 Oxygen Delivery Room Air 09/25/23 12:32 MDM - Extremity Injury (Lower) MDM Narrative Medical decision making narrative: Patient presents with chronic left knee pain, no new issues with this knee and is unchanged from the last few years of knee pain. He does have a effusion on exam but normal range of motion, no overlying skin changes. X-ray confirms osteoarthritis with effusion, patient was placed and I have instructed him to follow-up with orthopedics. He already has a family service caseworker arranging for him to move to a assisted. Have called do taken back to the hotel he is living in currently. Discharge Plan Discharge Clinical Impression: Chronic pain of left knee Patient Disposition: Home, Self-Care
== END 2023-09-25 14:33 | disposition home or self-care (01) ==
PROVIDERS: Emergency Provider Emergency Medicine; PCP Family Medicine
DX: M25.562 Pain in left knee (principal); G89.29 Other chronic pain; M19.90 Unspecified osteoarthritis, unspecified site; H91.90 Unspecified hearing loss, unspecified ear; I10 Essential (primary) hypertension
CPT/HCPCS: 73562; 99283; A9270